=== PATIENT | male | born 1955 | race African-American/Black ===

== ENCOUNTER 2016-11-27 10:18 | Emergency (ER) | payer MEDICARE | END 2016-11-27 11:15 | disposition home or self-care (01) | LOC: MADERS 10:18 | DX: T82.198A Other mechanical complication of other cardiac electronic device, initial encounter (principal); I10 Essential (primary) hypertension; Z79.82 Long term (current) use of aspirin; Z79.899 Other long term (current) drug therapy; Z87.891 Personal history of nicotine dependence | CPT/HCPCS: 99283 ==

== ENCOUNTER 2016-12-14 11:03 | Outpatient (CLI) | payer MEDICARE ==
[2016-12-14 11:47] LABS: #Basophils 0.1 thou/uL (0.0-0.2); #Eosinphils 0.1 thou/uL (0.0-0.7); #Monocytes 0.6 thou/uL (0.11-0.59); #Neutrophils 6.7 thou/uL (1.40-6.50); %Basophils 1.4 % (0.0-1.0); %Eosinophils 1.1 % (0.0-10.0); %Lymphocytes 21.1 % (21.0-51.0); %Monocytes 6.5 % (0.0-10.0); %Neutrophils 69.9 % (42.0-75.0); Hemoglobin 15.6 g/dL (14.0-18.0); Mean Corpuscular HGB CONC 32.1 g/dL (32.0-36.0); Mean Corpuscular Hemoglobin 30.4 pg (27.0-31.0); Mean Corpuscular Volume 94.4 fl (80.0-94.0); Mean Platelet Volume 8.6 fL (7.4-10.4); Platelet Count 217 thou/uL (130-400); RBC Distribution Width 13.1 % (11.5-14.5); Red Blood Cell (RBC) Count 5.14 mill/uL (4.70-6.10); White Blood Cell (WBC) Count 9.6 thou/uL (4.8-10.8)
[2016-12-14 11:49] LABS: Hemoglobin A1c 5.7 % (4.0-6.0)
[2016-12-14 11:51] LABS: ALT (SGPT) 14 U/L (0-55); AST (SGOT) 17 U/L (5-34); Albumin 4.2 g/dL (3.5-5.0); Alkaline Phosphatase 73 U/L (40-150); Anion Gap 14 mmol/L (10-20); BUN (Urea Nitrogen) 15 mg/dL (8.4-25.7); Bilirubin, Total 0.5 mg/dL (0.2-1.2); Calc. Creatinine Clearance 0 mL/min (70-130); Calcium 9.3 mg/dL (7.8-10.44); Carbon Dioxide 24 mmol/L (22-29); Chloride 108 mmol/L (98-107); Cholesterol 147 mg/dL (< 200 Desired); Estimated GFR-MDRD 74; Globulin 2.8 g/dL (2.4-3.5); Glucose 105 mg/dL (70-105); HDL Cholesterol 49 mg/dL (>60 Neg Risk); LDL Cholesterol, Calculated 80 mg/dL; Potassium 4.5 mmol/L (3.5-5.1); Sodium 141 mmol/L (136-145); Triglycerides 88 mg/dL (Less than 150)
== END 2016-12-14 11:04 | disposition home or self-care (01) ==
LOC: MADLABBHPM 11:03
PROVIDERS: ATTEND Family Medicine
DX: I10 Essential (primary) hypertension (principal); R73.09 Other abnormal glucose
CPT/HCPCS: 36415; 80053; 80061; 83036; 85025

== ENCOUNTER 2017-10-27 08:21 | Emergency (ER) | payer MEDICARE ==
[~2017-10-27 08:21] MED LIST: Sodium Chloride 0.9% 1,000 ML BAG ONE
[2017-10-27] MEDS ORDERED: diphenhydrAMINE 50 MG/ML VIAL ONE (08:59)
[2017-10-27] MEDS ORDERED: Dexamethasone 10 MG/ML VIAL ONE (08:59)
[2017-10-27] MEDS ORDERED: Hydrocortisone Sod Succ/PF 250 mg/2 ml Vial ONE (08:59)
[2017-10-27 09:04] LABS: #Basophils 0.1 thou/uL (0.0-0.2); #Lymphocytes 2.5 thou/uL (1.20-3.40); #Monocytes 0.7 thou/uL (0.11-0.59); #Neutrophils 10.2 thou/uL (1.40-6.50); %Eosinophils 0.3 % (0.0-10.0); %Lymphocytes 18.6 % (21.0-51.0); %Monocytes 5.3 % (0.0-10.0); %Neutrophils 74.8 % (42.0-75.0); Hemoglobin 15.8 g/dL (14.0-18.0); Mean Corpuscular HGB CONC 32.2 g/dL (32.0-36.0); Mean Corpuscular Hemoglobin 29.9 pg (27.0-31.0); Mean Corpuscular Volume 92.8 fl (80.0-94.0); Mean Platelet Volume 8.8 fL (7.4-10.4); Platelet Count 386 thou/uL (130-400); RBC Distribution Width 12.2 % (11.5-14.5); Red Blood Cell (RBC) Count 5.28 mill/uL (4.70-6.10); White Blood Cell (WBC) Count 13.6 thou/uL (4.8-10.8)
[2017-10-27 09:14] LABS: ALT (SGPT) 17 U/L (8-55); AST (SGOT) 18 U/L (5-34); Albumin 3.9 g/dL (3.5-5.0); Alkaline Phosphatase 80 U/L (40-150); Anion Gap 17 mmol/L (10-20); BUN (Urea Nitrogen) 17 mg/dL (8.4-25.7); Bilirubin, Total 1.3 mg/dL (0.2-1.2); Calc. Creatinine Clearance 0 mL/min (70-130); Calcium 9.3 mg/dL (7.8-10.44); Carbon Dioxide 19 mmol/L (22-29); Chloride 106 mmol/L (98-107); Estimated GFR-MDRD 68; Globulin 3.3 g/dL (2.4-3.5); Glucose 138 mg/dL (70-105); Potassium 4.5 mmol/L (3.5-5.1); Protein, Total 7.2 g/dL (6.0-8.3); Sodium 137 mmol/L (136-145)
--- NOTE | 2017-10-27 09:22 | RAD ---
PORTABLE AP CHEST XRAY: DATE: 10/27/17. History Allergic reaction. COMPARISON: 12/21/11. FINDINGS: Dual-lead left subclavian AICD device is again noted in place. Cardiac silhouette is within normal l imits. The lungs remain clear. There has been no interval change from prior exam. IMPRESSION: No acute cardiopulmonary process. POS: [facility]
== END 2017-10-27 11:20 | disposition home or self-care (01) ==
LOC: MADERS 08:21
DX: T78.40XA Allergy, unspecified, initial encounter (principal); I10 Essential (primary) hypertension; Z87.891 Personal history of nicotine dependence; Z79.899 Other long term (current) drug therapy; Z79.82 Long term (current) use of aspirin
CPT/HCPCS: 71045; 80053; 85025; 96361; 96374; 96375; J1100; J1200; J1720; J7050

== ENCOUNTER 2018-09-27 15:46 | Emergency (ER) | payer MEDICARE ==
[2018-09-27 16:34] LABS: #Basophils 0.1 thou/uL (0.0-0.2); #Eosinphils 0.1 thou/uL (0.0-0.7); #Lymphocytes 1.7 thou/uL (1.20-3.40); #Monocytes 0.5 thou/uL (0.11-0.59); #Neutrophils 9.5 thou/uL (1.40-6.50); %Basophils 1.1 % (0.0-1.0); %Eosinophils 0.7 % (0.0-10.0); %Lymphocytes 13.9 % (21.0-51.0); %Monocytes 4.4 % (0.0-10.0); %Neutrophils 79.9 % (42.0-75.0); Hemoglobin 16.8 g/dL (14.0-18.0); Mean Corpuscular HGB CONC 30.6 g/dL (32.0-36.0); Mean Corpuscular Hemoglobin 29.2 pg (27.0-31.0); Mean Corpuscular Volume 95.3 fL (78.0-98.0); Mean Platelet Volume 9.4 fL (7.4-10.4); Platelet Count 218 thou/uL (130-400); RBC Distribution Width 12.7 % (11.5-14.5); Red Blood Cell (RBC) Count 5.77 mill/uL (4.70-6.10); White Blood Cell (WBC) Count 11.9 thou/uL (4.8-10.8)
[2018-09-27] MEDS ORDERED: manNITOL 20% 500 ML ONE (16:53)
[2018-09-27] MEDS ORDERED: Nitroglycerin 50 MG/250 ML BOT 250 ML ONE (16:53)
--- NOTE | 2018-09-27 16:53 | CT ---
CT HEAD NONCONTRAST: Date: 09/27/18 INDICATION: Altered mental status. FINDINGS: There is abnormal nidus of acute hemorrhage centered within the left cerebellar hemisphere with surro unding vasogenic edema. This produces mass effect upon the fourth ventricle, with rightward shift, an d effacement of the fourth ventricle. This does produce mild prominence to the temporal horns, indica ting a component of developing obstructive hydrocephalus. The calvarium is intact. IMPRESSION: Acute hemorrhagic focus of the left cerebellar hemisphere with associated vasogenic edema. This does produce mass effect and displacement of the fourth ventricle, and mild prominence of bilateral tempor al horns to indicate a component of developing obstructive hydrocephalus. Findings either likely rela marti to hypertensive hemorrhage, or hemorrhage related to an underlying lesion, which can be further d iscerned upon resolution of acuity of the hemorrhage. Recommend emergent neurosurgical consultation f or decompression of the hemorrhage which is producing the above described mass effect. Findings were conveyed to patient's ER physician, Ross Figueroa, at 1642 hours on 09/27/18. CODE CR.
[2018-09-27 16:54] LABS: ALT (SGPT) 14 U/L (8-55); AST (SGOT) 14 U/L (5-34); Albumin 4.5 g/dL (3.4-4.8); Alkaline Phosphatase 80 U/L (40-150); Anion Gap 14 mmol/L (10-20); BUN (Urea Nitrogen) 15 mg/dL (8.4-25.7); Bilirubin, Total 0.6 mg/dL (0.2-1.2); Calc. Creatinine Clearance 0 mL/min (70-130); Calcium 10.3 mg/dL (7.8-10.44); Carbon Dioxide 24 mmol/L (23-31); Chloride 106 mmol/L (98-107); Estimated GFR-MDRD 56; Globulin 3.4 g/dL (2.4-3.5); Glucose 149 mg/dL (80-115); Potassium 4.3 mmol/L (3.5-5.1); Protein, Total 7.9 g/dL (5.8-8.1); Sodium 140 mmol/L (136-145)
--- NOTE | 2018-09-27 16:55 | RAD ---
CHEST 1 VIEW: Date: 09/27/18 HISTORY: Altered mental status. Dyspnea. COMPARISON: 10/27/17. FINDINGS: Cardiac silhouette is magnified by projection. Pulmonary vasculature is slightly engorged with widesp read reticulonodular interstitial prominence. Mediastinum is midline with a dual lead left subclavian cardiac electronic device. No lobar consolidation or evidence of pneumothorax. IMPRESSION: Borderline pulmonary vascular congestion. POS: [facility]
[2018-09-27 17:29] LABS: PTT 29.6 SEC (22.9-36.1); Prothrombin Time 13.4 SEC (12.0-14.7)
== END 2018-09-27 17:28 | disposition short-term general hospital (02) ==
LOC: MADERS 15:46
DX: I61.4 Nontraumatic intracerebral hemorrhage in cerebellum (principal); I10 Essential (primary) hypertension; Z87.891 Personal history of nicotine dependence; Z79.82 Long term (current) use of aspirin; Z79.899 Other long term (current) drug therapy
CPT/HCPCS: 70450; 71045; 80053; 83605; 84484; 85025; 85610; 85730; 93005; 96365; J7799

== ENCOUNTER 2018-10-08 10:33 | Outpatient (CLI) | payer MEDICARE ==
--- NOTE | 2018-10-08 14:07 | CT ---
CT OF BRAIN PERFORMED WITHOUT CONTRAST ENHANCEMENT: Date: 10/08/18 COMPARISON: 09/28/18 and 09/27/18 examinations. FINDINGS: There is a persistent high attenuation mass within the left cerebellar hemisphere. It does appear to be intra-axial. It measures slightly greater than 4.0 cm. There is associated vasogenic edema. Shift of the fourth ventricle slightly to the right. Ventricular size is not significantly changed. No danilo tional findings. IMPRESSION: Stable appearance to a left cerebellar mass with some vasogenic edema and mass effect. Given the fact that this is not changed, and although it has what appears to be hemorrhage components, it is felt t o be more likely now that this represents a primary or metastatic lesion with hemorrhage within a ma ss rather than just a simple left cerebellar hemorrhage. POS: [facility]
== END 2018-10-08 10:34 | disposition home or self-care (01) ==
LOC: MADCT 10:33
PROVIDERS: ATTEND Family Medicine
DX: I61.4 Nontraumatic intracerebral hemorrhage in cerebellum (principal); R22.0 Localized swelling, mass and lump, head; G93.6 Cerebral edema
CPT/HCPCS: 70450

== ENCOUNTER 2019-01-30 11:52 | Emergency (ER) | payer MEDICARE | END 2019-01-30 12:04 | disposition left against medical advice (07) | LOC: MADERS 11:52 | DX: Z53.21 Procedure and treatment not carried out due to patient leaving prior to being seen by health care provider (principal) ==

== ENCOUNTER 2019-02-04 09:49 | Emergency (ER) | payer MEDICARE ==
--- NOTE | 2019-02-04 11:02 | CT ---
CT head noncontrast HISTORY: Hypertension. Altered mental status. Headache. Recent surgery for intracranial hematoma. COMPARISON: 11/27/2018. FINDINGS: Centered at the left cerebellar hemisphere in region of prior surgery, a lobular heterogene ous predominantly hyperdense mass is 3.8 cm x 3.5 cm on the axial images and results in slight effacement of the fourth ventricle and posterior cerebellar interhemispheric fissure. There is subtle diffuse effacement of the cerebellar sulci and basilar cisterns. Small amount of vaso genic edema surrounding the left cerebellar hematoma. Ventricles are now moderately dilated, most evident at the temporal horns. IMPRESSION: Recurrent left cerebellar hematoma with adjacent vasogenic edema and diffuse cerebral catarina ma. Developing obstructive hydrocephalus Findings were called to Dr. Dan in the [place] emergency department at 1054 hours. Code CR.
[2019-02-04] MEDS ORDERED: manNITOL 20% 500 ML ONE (11:08)
[2019-02-04 11:10] LABS: #Basophils 0.1 thou/uL (0.0-0.2); #Eosinphils 0.1 thou/uL (0.0-0.7); #Lymphocytes 1.4 thou/uL (1.20-3.40); #Monocytes 0.5 thou/uL (0.11-0.59); %Basophils 0.6 % (0.0-1.0); %Eosinophils 0.7 % (0.0-10.0); %Lymphocytes 10.5 % (21.0-51.0); %Monocytes 3.6 % (0.0-10.0); %Neutrophils 84.6 % (42.0-75.0); Mean Corpuscular HGB CONC 30.1 g/dL (32.0-36.0); Mean Corpuscular Hemoglobin 26.6 pg (27.0-31.0); Mean Corpuscular Volume 88.6 fL (78.0-98.0); Mean Platelet Volume 7.7 fL (7.4-10.4); Platelet Count 296 thou/uL (130-400); RBC Distribution Width 14.8 % (11.5-14.5); Red Blood Cell (RBC) Count 5.65 mill/uL (4.70-6.10)
--- NOTE | 2019-02-04 11:11 | RAD ---
PORTABLE CHEST 1 VIEW: DATE: 02/04/2019. TIME: 10:58 a.m. HISTORY: Chest pain, hypertension. FINDINGS: Comparison is made with the exam of 11/12/2018. Left-sided AICD remains in place. The heart size is normal. The lungs are expanded without focal ar eas of consolidation, pneumothoraces, or pleural effusions. IMPRESSION: No acute process. POS: [facility]
[2019-02-04 11:17] LABS: INR-International Normal Ratio 1.1
[2019-02-04 11:18] LABS: PTT 30.1 SEC (22.9-36.1)
[2019-02-04] MEDS ORDERED: levETIRAcetam 500 MG/100 ML PREMIX BAG ONE ×2 (11:22→11:23)
[2019-02-04 11:42] LABS: Potassium 4.5 mmol/L (3.5-5.1); Sodium 139 mmol/L (136-145)
[2019-02-04 11:43] LABS: Albumin 4.1 g/dL (3.4-4.8); Anion Gap 19 mmol/L (10-20); BUN (Urea Nitrogen) 9 mg/dL (8.4-25.7); Bilirubin, Total 0.6 mg/dL (0.2-1.2); Calc. Creatinine Clearance 0 mL/min (70-130); Calcium 10.4 mg/dL (7.8-10.44); Carbon Dioxide 24 mmol/L (23-31); Chloride 101 mmol/L (98-107); Estimated GFR-MDRD Greater than 90; Glucose 155 mg/dL (80-115); Protein, Total 8.1 g/dL (5.8-8.1)
[2019-02-04 11:44] LABS: ALT (SGPT) 8 U/L (8-55); AST (SGOT) 17 U/L (5-34); Alkaline Phosphatase 91 U/L (40-150); Magnesium 2.1 mg/dL (1.6-2.6)
== END 2019-02-04 11:52 | disposition short-term general hospital (02) ==
LOC: MADERS 09:49
DX: I61.4 Nontraumatic intracerebral hemorrhage in cerebellum (principal); I67.4 Hypertensive encephalopathy; I10 Essential (primary) hypertension; Z87.891 Personal history of nicotine dependence; Z79.891 Long term (current) use of opiate analgesic; Z79.82 Long term (current) use of aspirin
CPT/HCPCS: 70450; 71045; 80053; 83735; 83880; 84443; 84484; 85025; 85610; 85730; 93005; 96365; 96375; 99292; J1953; J7050; J7799